=== PATIENT | female | born 1960 | race Caucasian/White ===

== ENCOUNTER → 2016-09-26 | Outpatient (CLI) | payer OTHER ==
--- NOTE | 2016-09-26 09:49 | MM ---
Reason for exam: follow-up at short interval from prior study. Last mammogram was performed 9 months ago. History: Patient has history of breast cancer at age 55. Malignant MG pre op loc each addl LT of the left breast, January 19, 2016. Malignant MG pre op needle loc LT of the left breast, January 19, 2016. Malignant US biopsy breast VAD LT of the left breast, December 31, 2015. Malignant US biopsy breast add'l VAD LT of the left breast, December 31, 2015. Benign ultrasound-guided core biopsy of the left breast, December 13, 2001. Core biopsy of the left breast. Physical Findings: Nurse did not find any significant physical abnormalities on exam. MG Diagnostic Mammo w CAD CHRISTINA Bilateral CC and MLO view(s) were taken. Spot compression CC and spot compression MLO view(s) were taken of the right breast. Prior study comparison: December 31, 2015, left breast MG diagnostic mammo LT wo CAD. December 09, 2015, left breast MG work up mamm w CAD LT. The breast tissue is heterogeneously dense. This may lower the sensitivity of mammography. Post operative and post radiation changes in the left breast. This is a new baseline. These results were verbally communicated with the patient and result sheet given to the patient on 09/26/16. ASSESSMENT: Probably benign, BI-RAD 3 RECOMMENDATION: Follow-up diagnostic mammogram of both breasts in 1 year.
== END | disposition home or self-care (01) ==
LOC: RADMAMWWP 08:40
PROVIDERS: ATTEND Radiology Diagnostic Radiology
DX: C50.912 Malignant neoplasm of unspecified site of left female breast (principal)

== ENCOUNTER → 2017-06-23 | Outpatient (CLI) | payer OTHER ==
[2017-06-23 11:14] LABS: Basophils % (A) 1 %; CH 28.2; CHCM 31.8; Eosinophils # (A) 0.1 k/uL (0-0.7); Eosinophils % (A) 2 %; HCT 44.8 % (34.0-46.0); HDW 2.46; HGB 14.1 gm/dL (11.4-16.0); Luc # (Auto) 0.16; Luc % (Auto) 4; Lymphocytes # (A) 1.1 k/uL (1.0-4.8); Lymphocytes % (A) 29 %; MCHC 31.4 g/dL (31.0-37.0); MCV 89.3 fL (80.0-100.0); Monocytes # (A) 0.3 k/uL (0-1.0); Monocytes % (A) 8 %; Neutrophils # (A) 2.1 k/uL (1.3-7.7); Neutrophils % (A) 57 %; RBC 5.01 m/uL (3.80-5.40); RDW 12.7 % (11.5-15.5); WBC 3.8 k/uL (3.8-10.6); WBC (Perox) 3.76
[2017-06-23 11:21] LABS: Appearance,Urine Cloudy (Clear); Bacteria,Urine Few /hpf; Bilirubin,Urine Negative (Negative); Glucose,Urine (UA) Negative (Negative); Ketones,Urine Negative (Negative); Leukocyte Esterase,Urine Moderate (Negative); Mucus,Urine Many /hpf; Nitrite,Urine Positive (Negative); Particle Count 152005; Protein,Urine Trace (Negative); RBC,Urine 6 /hpf (0-5); Squamous Epithelial Cell,Urine <1 /hpf (0-4); UA Billing (MACRO vs. MICRO) MICRO; Urobilinogen,Urine <2.0 mg/dL (<2.0); WBC,Urine 29 /hpf (0-5)
[2017-06-23 11:22] LABS: Anion Gap 6 mmol/L; Blood Urea Nitrogen 16 mg/dL (7-17); Calcium 9.4 mg/dL (8.4-10.2); Carbon Dioxide 31 mmol/L (22-30); Chloride 105 mmol/L (98-107); Glucose 97 mg/dL (74-99); Non-African American GFR(MDRD) >60 (>60 ml/min/1.73 sqM); Potassium 3.9 mmol/L (3.5-5.1); Sodium 142 mmol/L (137-145)
== END | disposition home or self-care (01) ==
LOC: LABWHC1 10:19
PROVIDERS: ATTEND Urology
DX: Z01.812 Encounter for preprocedural laboratory examination (principal); R35.0 Frequency of micturition; N30.10 Interstitial cystitis (chronic) without hematuria; E05.90 Thyrotoxicosis, unspecified without thyrotoxic crisis or storm
CPT/HCPCS: 36415; 80048; 81001; 85025; 87077; 87086; 87186

== ENCOUNTER → 2017-09-27 | Outpatient (CLI) | payer OTHER ==
--- NOTE | 2017-09-27 09:56 | MM ---
Reason for exam: additional evaluation requested from prior study. Last mammogram was performed 1 year ago. History: Patient has history of breast cancer at age 55. Radiation therapy, March 2016. Malignant MG pre op loc each addl LT of the left breast, January 19, 2016. Malignant MG pre op needle loc LT of the left breast, January 19, 2016. Malignant US biopsy breast VAD LT of the left breast, December 31, 2015. Malignant US biopsy breast add'l VAD LT of the left breast, December 31, 2015. Benign ultrasound-guided core biopsy of the left breast, December 13, 2001. Core biopsy of the left breast. Taking antineoplastic beginning at age 55. Physical Findings: Nurse did not find any significant physical abnormalities on exam. MG Diagnostic Mammo w CAD CHRISTINA Bilateral CC and MLO view(s) were taken. XCCL view(s) were taken of the left breast. Prior study comparison: September 26, 2016, bilateral MG diagnostic mammo w CAD CHRISTINA. December 31, 2015, left breast MG diagnostic mammo LT wo CAD. The breast tissue is heterogeneously dense. This may lower the sensitivity of mammography. Finding #1: Architectural distortion in the upper outer quadrant of the left breast consistent with previous surgery/biopsy. Finding #2: There are typically benign calcifications in both breasts. There is a chronic nodularity in the right breast, stable. No significant changes in finding since September 26, 2016 and December 31, 2015. These results were verbally communicated with the patient and result sheet given to the patient on 09/27/17. ASSESSMENT: Benign, BI-RAD 2 RECOMMENDATION: Follow-up diagnostic mammogram of both breasts in 1 year.
== END | disposition home or self-care (01) ==
LOC: RADMAMWWP 08:38
PROVIDERS: ATTEND Radiology Diagnostic Radiology
DX: C50.912 Malignant neoplasm of unspecified site of left female breast (principal)
CPT/HCPCS: 77066

== ENCOUNTER → 2018-10-29 | Outpatient (CLI) | payer OTHER ==
--- NOTE | 2018-10-29 17:12 | BD ---
EXAMINATION TYPE: Axial Bone Density DATE OF EXAM: 10/29/2018 COMPARISON: 05/10/2016 CLINICAL HISTORY: 57-year-old female osteopenia, postmenopausal screening without HRT Height: 65 IN Weight: 195 LBS FRAX RISK QUESTIONS: Secondary Osteoporosis: 3. Menopause before 45: YES AGE 26 PARTIAL HYST RISK FACTORS HISTORY OF: Active: YES Diet low in dairy products/other sources of calcium: YES Postmenopausal woman: AGE 26 MEDICATIONS: Additional Medications: VIT D, LETRAZOLE, URINARY FREQUENCY MED, Additional History: BREAST CANCER WITH RADIATION EXAM MEASUREMENTS: Bone mineral densitometry was performed using the [employer] System. Bone mineral density as measured about the Lumbar spine is: ----- L1-L4(G/cm2): 0.974 T Score Values are as follows: ----- L2: -2.3 ----- L3: -0.9 ----- L4: -2.0 ----- L1-L4: -1.7 Bone mineral density has: DECREASED -5.5% since study of: 05/10/2016 Bone mineral density about the R hip (g/cm2): 0.928 Bone mineral density about the L hip (g/cm2): 0.851 T Score values are as follows: -----R Neck: -0.8 -----L Neck: -1.3 -----R Total: -0.3 -----L Total: -0.5 Bone mineral density has: DECREASED -4.4% since study of: 05/10/2016 IMPRESSION: Osteopenia (T Score between -2.5 and -1). There is slightly increased risk of fracture and the patient may be considered for treatment. Re-Screen 2-5 years. NOTE: T-SCORE=SD OF THE YOUNG ADULT MEAN.
== END ==
LOC: RADBDWWP 08:29
PROVIDERS: ATTEND Internal Medicine Hematology & Oncology
DX: M85.80 Other specified disorders of bone density and structure, unspecified site (principal)
CPT/HCPCS: 77080

== ENCOUNTER → 2018-10-29 | Outpatient (CLI) | payer OTHER ==
--- NOTE | 2018-10-29 10:49 | MM ---
Reason for exam: additional evaluation requested from prior study. Last mammogram was performed 1 year and 1 month ago. History: Patient has history of breast cancer at age 55. Radiation therapy, March 2016. Malignant MG pre op loc each addl LT of the left breast, January 19, 2016. Malignant MG pre op needle loc LT of the left breast, January 19, 2016. Malignant US biopsy breast VAD LT of the left breast, December 31, 2015. Malignant US biopsy breast add'l VAD LT of the left breast, December 31, 2015. Benign ultrasound-guided core biopsy of the left breast, December 13, 2001. Core biopsy of the left breast. Taking antineoplastic for 2 years beginning at age 55. Physical Findings: Nurse did not find any significant physical abnormalities on exam. MG Diagnostic Mammo w CAD CHRISTINA Bilateral CC and MLO view(s) were taken. XCCL view(s) were taken of the left breast. Prior study comparison: September 27, 2017, bilateral MG diagnostic mammo w CAD CHRISTINA. September 26, 2016, bilateral MG diagnostic mammo w CAD CHRISTINA. The breast tissue is heterogeneously dense. This may lower the sensitivity of mammography. Post surgical and post therapy changes left breast. Gradually increasing dystrophic calcifications on the left. No significant new findings when compared with previous films. These results were verbally communicated with the patient and result sheet given to the patient on 10/29/18. ASSESSMENT: Benign, BI-RAD 2 RECOMMENDATION: Follow-up diagnostic mammogram of both breasts in 1 year.
== END | disposition home or self-care (01) ==
LOC: RADMAMWWP 08:26
PROVIDERS: ATTEND Radiology Diagnostic Radiology
DX: C50.412 Malignant neoplasm of upper-outer quadrant of left female breast (principal)
CPT/HCPCS: 77066

== ENCOUNTER → 2019-01-31 | Outpatient (CLI) | payer OTHER ==
[2019-01-31 14:11] VITALS: BP 114/74; PULSE 71; RESP 18; TEMP 98.8; BMI 31.9
--- NOTE | 2019-01-31 14:48 | P.GSHP ---
History of Present Illness H&P Date: 01/31/19 Chief Complaint: Left breast lumpectomy Susan is a 58 year old white female status post left breast lumpectomy January 2016, and an axillary dissection. She had radiation therapy but did not have any chemotherapy. She is on letrazole. She is uncertain as to the size of the t umor. This surgery was done here at [facility]. She developed swelling/ lymphedema in her left arm approximately 4 months after the surgery and has been seen by a lymphedema specialist. She wears an elastic stocking. She has had at least one hospitalization for lymphangitis requiring IV antibiotic therapy approximately 6 months ago. She has no complaints or problems related with her breasts. She has no new nodules or masses in her breasts. [place] mamm[place] [id number]. This was a bilateral benign BIRADS 2. Tumor [id number] Family History: brother: kidney father: lung Hormonal History: menarche: 11 , 1 [place]age Menopause: Partial hysterectomy in 1986 at the age of 28 BCP: 6 years hormones: none Surgical history: 1. Left breast lumpectomy and axillary node dissection 2. D&C's 3. left knee meniscus 4. Cystoscopy, diagnosis interstitial cystitis Medical History: 1. interstiial cystitis 2. lymphedema 3. UTI 4. osteopenia Social history: Smoking: Negative Alcohol: Negative Drugs: Negative - Constitutional Constitutional: Denies chills, Denies fever - EENT Eyes: denies blurred vision, denies pain Ears: deny: decreased hearing, tinnitus Ears, nose, mouth and throat: Denies headache, Denies sore throat - Breasts Breasts: bilateral: as per HPI - Cardiovascular Cardiovascular: Denies chest pain, Denies shortness of breath - Respiratory Respiratory: Denies cough, Denies 7 - Gastrointestinal Gastrointestinal: Denies abdominal pain, Denies diarrhea, Denies nausea, Denies vomiting - Genitourinary (Female) Comment: Interstitial cystitis, UTIs in the past - Menstruation Menstruation: Reports post hysterectomy - Musculoskeletal Comment: Osteopenia - Integumentary Comment: Lymphedema left upper extremity - Neurological Neurological: Denies numbness, Denies weakness - Psychiatric Psychiatric: Denies anxiety, Denies depression - Endocrine Endocrine: Denies fatigue, Denies weight change - Hematologic/Lymphatic Hematologic/Lymphatic: Reports lymphedema - Allergic/Immunologic Allergic/Immunologic: Reports seasonal allergies Past Medical History Past Medical History: Cancer, GERD/Reflux Additional Past Medical History / Comment(s): DX LT BREAST CA-01/07/16 History of Any Multi-Drug Resistant Organisms: ESBL Date of last positivie culture/infection: 06/23/17 MDRO Source:: ESBL URINE Past Surgical History: Bladder Surgery, Breast Surgery, Hysterectomy, Orthopedic Surgery Additional Past Surgical History / Comment(s): LT BREAST CORE BIOPSY, LT KNEE SCOPE, BLADDER SX, D & C, COLONOSCOPY Past Anesthesia/Blood Transfusion Reactions: Postoperative Nausea & Vomiting (PONV) Past Psychological History: No Psychological Hx Reported Smoking Status: Never smoker Past Alcohol Use History: None Reported Past Drug Use History: None Reported - Past Family History Father Family Medical History: Cancer Brother(s) Family Medical History: Cancer Medications and Allergies Home Medications Medication Instructions Recorded Confirmed Type Ergocalciferol [Vitamin D2 50,000 unit PO Q7D 01/13/16 01/31/19 History (DRISDOL)] Oxybutynin Chloride [Ditropan] 5 mg PO TID 01/13/16 01/19/16 History Alendronate Sodium 70 mg PO WEEKLY 01/31/19 01/31/19 History Letrozole 2.5 mg PO 01/31/19 History Allergies Allergy/AdvReac Type Severity Reaction Status Date / Time sulfamethoxazole AdvReac Nausea Verified 01/31/19 14:03 [From Bactrim] trimethoprim [From Bactrim] AdvReac Nausea Verified 01/31/19 14:03 Surgical - Exam Vital Signs Temp Pulse Resp BP Pulse Ox 98.8 F 71 18 114/74 94 L 01/31/19 14:07 01/31/19 14:07 01/31/19 14:07 01/31/19 14:07 01/31/19 14:07 BMI 32 - General obese - Eyes normal ocular movement - ENT no hearing loss, no congestion - Neck no masses, trachea midline - Respiratory normal expansion, normal respiratory effort, clear to percussion, clear to auscultation - Cardiovascular Rhythm: regular Heart Sounds: normal: S1, S2 - Abdomen Abdomen: soft, non tender, no guarding, no rigid, no rebound - Integumentary lymphedema left upper arm - Neurologic no disoriented, no combative - Musculoskeletal normal gait, normal posture - Psychiatric oriented to time, oriented to person, oriented to place, speech is normal, memory intact Breast exam: right breast: Multiple positional exam no dominant masses or nodules of concern, fibrocystic changes in the right breast Right axilla: No adenopathy of concern Left breast: Multiple positional exam no dominant masses or nodules of concern, no evidence of any recurrent cancer, fibrocystic changes, well-healed scar from prior lumpectomy Left axilla: No adenopathy of concern Left upper extremity lymphedema, elastic sleeve in place Results Mammogram reviewed Assessment and Plan Assessment: Impression: 1. interstiial cystitis 2. lymphedema 3. UTI 4. osteopenia 5. personal history of breast cancer Stage 1A 6. on letrazole 7. No evidence of recurrent cancer Plan: 1. Continue present therapy on letrazole 2. Continue to follow with 3. medical managment of medical conditions 4. appt. Lavinia Haley, lymphedema therapist 5. follow up in 6 months CC: Dr. Abraham, Dr. Adolfo Bernstein
== END ==
LOC: WWCWWP 13:47
PROVIDERS: ATTEND Surgery
DX: Z53.9 Procedure and treatment not carried out, unspecified reason (principal)

== ENCOUNTER → 2019-10-31 | Outpatient (CLI) | payer OTHER ==
--- NOTE | 2019-10-31 09:04 | MM ---
Reason for exam: additional evaluation requested from prior study. Last mammogram was performed 1 year ago. History: Patient has history of breast cancer at age 55. Radiation therapy, March 2016. Malignant MG pre op loc each addl LT of the left breast, January 19, 2016. Malignant MG pre op needle loc LT of the left breast, January 19, 2016. Malignant US biopsy breast VAD LT of the left breast, December 31, 2015. Malignant US biopsy breast add'l VAD LT of the left breast, December 31, 2015. Benign ultrasound-guided core biopsy of the left breast, December 13, 2001. Core biopsy of the left breast. Taking antineoplastic for 2 years beginning at age 55. Physical Findings: Nurse did not find any significant physical abnormalities on exam. MG Diagnostic Mammo w CAD CHRISTINA Bilateral CC and MLO view(s) were taken. Prior study comparison: October 29, 2018, bilateral MG diagnostic mammo w CAD CHRISTINA. September 27, 2017, bilateral MG diagnostic mammo w CAD CHRISTINA. The breast tissue is heterogeneously dense. This may lower the sensitivity of mammography. Finding #1: There is drecreased in size and architectural distortion in the upper outer quadrant of the left breast consistent with known lumpectomy changes. Finding #2: There are typically benign vascular calcifications in both breasts. There is no discrete abnormality. These results were verbally communicated with the patient and result sheet given to the patient on 10/31/19. ASSESSMENT: Benign, BI-RAD 2 RECOMMENDATION: Follow-up diagnostic mammogram of both breasts in 1 year.
== END | disposition home or self-care (01) ==
LOC: RADMAMWWP 08:09
PROVIDERS: ATTEND Radiology Diagnostic Radiology
DX: Z08 Encounter for follow-up examination after completed treatment for malignant neoplasm (principal); Z85.3 Personal history of malignant neoplasm of breast
CPT/HCPCS: 77066

== ENCOUNTER → 2020-11-02 | Outpatient (CLI) | payer OTHER ==
--- NOTE | 2020-11-02 13:30 | MM ---
Reason for exam: additional evaluation requested from prior study. Last mammogram was performed 1 year ago. History: Patient has history of breast cancer at age 55. Radiation therapy, March 2016. Malignant MG pre op loc each addl LT of the left breast, January 19, 2016. Malignant MG pre op needle loc LT of the left breast, January 19, 2016. Malignant US biopsy breast VAD LT of the left breast, December 31, 2015. Malignant US biopsy breast add'l VAD LT of the left breast, December 31, 2015. Benign ultrasound-guided core biopsy of the left breast, December 13, 2001. Core biopsy of the left breast. Taking antineoplastic for 2 years beginning at age 55. Physical Findings: Nurse did not find any significant physical abnormalities on exam. MG Diagnostic Mammo w CAD CHRISTINA Bilateral CC and MLO view(s) were taken. Prior study comparison: October 31, 2019, bilateral MG diagnostic mammo w CAD CHRISTINA. October 29, 2018, bilateral MG diagnostic mammo w CAD CHRISTINA. The breast tissue is heterogeneously dense. This may lower the sensitivity of mammography. Stable benign calcifications. There is chronic nodularity in the right breast. Stable post lumpectomy changes left breast. No significant new findings when compared with previous films. These results were verbally communicated with the patient and result sheet given to the patient on 11/02/20. ASSESSMENT: Benign, BI-RAD 2 RECOMMENDATION: Follow-up diagnostic mammogram of both breasts in 1 year.
== END ==
LOC: RADMAMWWP 09:14
PROVIDERS: ATTEND Radiology Diagnostic Radiology
DX: C50.912 Malignant neoplasm of unspecified site of left female breast (principal)
CPT/HCPCS: 77066

== ENCOUNTER → 2020-11-02 | Outpatient (CLI) | payer OTHER ==
--- NOTE | 2020-11-02 11:47 | BD ---
EXAMINATION TYPE: Axial Bone Density DATE OF EXAM: 11/02/2020 COMPARISON: 2016 CLINICAL HISTORY: osteopenia, breast cancer Height: 5'4 1/2 Weight: 197 FRAX RISK QUESTIONS: Secondary Osteoporosis: RISK FACTORS HISTORY OF: Postmenopausal woman: y MEDICATIONS: Additional Medications: letrozole, fosamax Additional History: left breast cancer EXAM MEASUREMENTS: Bone mineral densitometry was performed using the [employer] System. Bone mineral density as measured about the Lumbar spine is: ----- L1-L4(G/cm2): 1.078 T Score Values are as follows: ----- L2: -1.2 ----- L3: 0.2 ----- L4: -1.3 ----- L1-L4: -0.8 Bone mineral density has: Increased 5.0% since study of: 05/10/2016 Bone mineral density about the R hip (g/cm2): 0.950 Bone mineral density about the L hip (g/cm2): 0.827 T Score values are as follows: -----R Neck: -0.6 -----L Neck: -1.5 -----R Total: -0.3 -----L Total: -0.2 Bone mineral density has: Decreased -2.8% since study of: 05/10/2016 IMPRESSION: No evidence for osteoporosis or osteopenia NOTE: T-SCORE=SD OF THE YOUNG ADULT MEAN.
== END | disposition home or self-care (01) ==
LOC: RADBDWWP 09:16
PROVIDERS: ATTEND Internal Medicine Hematology & Oncology
DX: C50.412 Malignant neoplasm of upper-outer quadrant of left female breast (principal); M85.80 Other specified disorders of bone density and structure, unspecified site; Z88.2 Allergy status to sulfonamides
CPT/HCPCS: 77080

== ENCOUNTER → 2021-11-04 | Outpatient (CLI) | payer OTHER ==
--- NOTE | 2021-11-04 11:09 | MM ---
Reason for exam: additional evaluation requested from prior study. Last mammogram was performed 1 year ago. History: Patient is postmenopausal and has history of breast cancer at age 55. Radiation therapy, March 2016. Malignant MG pre op loc each addl LT of the left breast, January 19, 2016. Malignant MG pre op needle loc LT of the left breast, January 19, 2016. Malignant US biopsy breast VAD LT of the left breast, December 31, 2015. Malignant US biopsy breast add'l VAD LT of the left breast, December 31, 2015. Benign ultrasound-guided core biopsy of the left breast, December 13, 2001. Core biopsy of the left breast. Taking antineoplastic for 2 years beginning at age 55. Physical Findings: A clinical breast exam by your physician is recommended on an annual basis and results should be correlated with mammographic findings. MG Diagnostic Mammo w CAD CHRISTINA Bilateral CC and MLO view(s) were taken. XCCL view(s) were taken of the left breast. Prior study comparison: November 02, 2020, bilateral MG diagnostic mammo w CAD CHRISTINA. October 31, 2019, bilateral MG diagnostic mammo w CAD CHRISTINA. There are scattered fibroglandular densities. Asymmetric breast tissue, greater in the left breast. Post surgical changes in the left breast. No significant changes when compared with prior studies. ASSESSMENT: Benign, BI-RAD 2 RECOMMENDATION: Routine screening mammogram of both breasts.
== END | disposition home or self-care (01) ==
LOC: RADMAMWWP 09:31
PROVIDERS: ATTEND Radiology Radiation Oncology
DX: R92.8 Other abnormal and inconclusive findings on diagnostic imaging of breast (principal); Z85.3 Personal history of malignant neoplasm of breast; Z78.0 Asymptomatic menopausal state; Z92.3 Personal history of irradiation
CPT/HCPCS: 77066

== ENCOUNTER → 2022-11-16 | Outpatient (CLI) | payer OTHER ==
--- NOTE | 2022-11-16 09:41 | MM ---
Reason for Exam: Follow-up at short interval from prior study. Last mammogram was performed 1 year(s) and 1 month(s) ago. Patient History: Menarche at age 14. First Full-Term at age 16. Hysterectomy at age 28. Postmenopausal. Breast cancer, age 55. Core Biopsy on the Left side. 01/19/2016, Malignant Core Biopsy on the left side. 01/19/2016, Malignant Core Biopsy on the left side. 12/31/2015, Malignant Core Biopsy on the left side. 12/31/2015, Malignant Core Biopsy on the left side. 12/13/2001, Benign Ultrasound-Guided Core Biopsy on the left side. 03/2016, Radiation Therapy. Prior Study Comparison: 10/31/2019 Bilateral Diagnostic Mammogram, [facility]. 11/02/2020 Bilateral Diagnostic Mammogram, [facility]. 11/04/2021 Bilateral Diagnostic Mammogram, [facility]. Tissue Density: There are scattered fibroglandular densities. Findings: Analyzed By CAD. Diminished size of the left breast with distortion and dystrophic calcifications is redemonstrated. Benign-appearing Vascular calcification bilaterally is redemonstrated. No suspicious new mass or distortion in either breast. Benign-appearing right axillary lymph nodes are redemonstrated. Overall Assessment: Benign, BI-RAD 2 Management: Screening Mammogram of both breasts in 1 year. A clinical breast exam by your physician is recommended on an annual basis and results should be correlated with mammographic findings. This exam should not preclude additional follow-up of suspicious palpable abnormalities. Results were given to the patient verbally at the time of exam. Electronically signed and approved by: Jozef Khan M.D.
== END | disposition home or self-care (01) ==
LOC: RADMAMWWP 09:09
PROVIDERS: ATTEND Radiology Radiation Oncology
DX: C50.412 Malignant neoplasm of upper-outer quadrant of left female breast (principal); Z78.0 Asymptomatic menopausal state
CPT/HCPCS: 77066

== ENCOUNTER → 2022-11-16 | Outpatient (CLI) | payer OTHER ==
--- NOTE | 2022-11-16 10:58 | BD ---
EXAMINATION TYPE: Axial Bone Density DATE OF EXAM: 11/16/2022 CLINICAL HISTORY: 61 years old Female. ICD-10 CODE: C50.412 MALIG NEOPLASM OF UPPER-OUTER QUADRANT O F LEFT FEMALE Comparison: Prior DEXA 2020 Height: 64 in Weight: 180 lbs FRAX RISK QUESTIONS: Secondary Osteoporosis: 3. Menopause before 45: partial hysterectomy age 28 RISK FACTORS HISTORY OF: Active: yes Diet low in dairy products/other sources of calcium: yes Postmenopausal woman: partial hysterectomy age 28 MEDICATIONS: Additional Medications: vit d, vit b, letrozole, cholesterol meds, alendronate sodium Additional History: breast cancer with radiation EXAM MEASUREMENTS: Bone mineral densitometry was performed using the [employer] System. Bone mineral density as measured about the Lumbar spine is: ----- L1-L4(G/cm2): 1.067 T Score Values are as follows: ----- L1: -1.2 ----- L2: -1.1 ----- L3: -0.4 ----- L4: -1.0 ----- L1-L4: -0.9 Z Score Values are as follows: ----- L1: -0.3 ----- L2: -0.1 ----- L3: 0.6 ----- L4: -0.1 ----- L1-L4: 0.0 Bone mineral density has: Decreased -1.0% since study of: 11/02/2020 Bone mineral density about the R hip (g/cm2): 0.926 Bone mineral density about the L hip (g/cm2): 0.920 T Score values are as follows: -----R Neck: -0.9 -----L Neck: -1.6 -----R Total: -0.6 -----L Total: -0.7 Z Score values are as follows: -----R Neck: 0.2 -----L Neck: -0.5 -----R Total: 0.1 -----L Total: 0.0 Bone mineral density has: Decreased -5.4% since study of: 11/02/2020 FRAX%s: The graph provided illustrates a 8.6% chance for a major osteoporotic fx and a 0.9% chance fo r the hips probability for fx in 10 years time. IMPRESSION: Osteopenia (T Score between -2.5 and -1). There is slightly increased risk of fracture and the patient may be considered for treatment. Re-Screen 2-5 years. NOTE: T-SCORE=SD OF THE YOUNG ADULT MEAN.
== END | disposition home or self-care (01) ==
LOC: RADBDWWP 09:13
PROVIDERS: ATTEND Internal Medicine Hematology & Oncology
DX: C50.412 Malignant neoplasm of upper-outer quadrant of left female breast (principal); M85.89 Other specified disorders of bone density and structure, multiple sites
CPT/HCPCS: 77080

== ENCOUNTER → 2023-09-15 | Outpatient (CLI) | payer OTHER | END | disposition home or self-care (01) | LOC: LABPAT 09:44 | PROVIDERS: ATTEND Orthopaedic Surgery | DX: Z01.812 Encounter for preprocedural laboratory examination (principal); Z22.322 Carrier or suspected carrier of Methicillin resistant Staphylococcus aureus; M17.11 Unilateral primary osteoarthritis, right knee | CPT/HCPCS: 87070 ==

== ENCOUNTER → 2023-10-03 | Outpatient (CLI) | payer OTHER ==
--- NOTE | 2023-10-03 18:01 | CA ---
Transthoracic Echo Report Name: Susan Stahl Age: 62 Gender: F : 1960 Exam Date: 10/03/2023 16:28 Exam Location: [facility] Ht (in): 66 Wt (lb): 179 Ordering Physician: Wyatt Ramires MD Attending/Referring Phys: Lico Mckeon DO Travel Accommodation Inspector Du Calderon RDCS Procedure CPT: Indications: I44.0 AV BLOCK FIRST DEGREE Cardiac Hx: Technical Quality: Fair Contrast 1: Total Dose (mL): Contrast 2: Total Dose (mL): MEASUREMENTS (Male / Female) Normal Values 2D ECHO LV Diastolic Diameter PLAX 4.1 cm 4.2 - 5.9 / 3.9 - 5.3 cm LV Systolic Diameter PLAX 2.7 cm IVS Diastolic Thickness 0.9 cm 0.6 - 1.0 / 0.6 - 0.9 cm LVPW Diastolic Thickness 0.9 cm 0.6 - 1.0 / 0.6 - 0.9 cm LV Relative Wall Thickness 0.5 Aortic Root Diameter 3.5 cm LA Systolic Diameter LX 4.1 cm 3.0 - 4.0 / 2.7 - 3.8 cm DOPPLER AV Peak Velocity 109.1 cm/s AV Peak Gradient 4.8 mmHg AV Mean Velocity 86.3 cm/s AV Mean Gradient 3.1 mmHg AV Velocity Time Integral 24.3 cm LVOT Peak Velocity 97.2 cm/s LVOT Peak Gradient 3.8 mmHg LVOT Velocity Time Integral 21.2 cm MR Peak Velocity 547.5 cm/s MR Peak Gradient 119.9 mmHg Mitral E Point Velocity 122.2 cm/s Mitral A Point Velocity 0.1 cm/s Mitral E to A Ratio 1228.7 MV Deceleration Time 152.4 ms MV E' Velocity 18.5 cm/s Mitral E to MV E' Ratio 6.6 PV Peak Velocity 82.4 cm/s PV Peak Gradient 2.7 mmHg FINDINGS Left Ventricle Left ventricular ejection fraction is estimated at 55-60 %.Normal left ventricular systolic function with no obvious regional wall motion abnormalities. Left ventricular cavity size normal. Right Ventricle Normal right ventricular size and function. Right Atrium Normal right atrial size. Left Atrium Mildly increased left atrial diameter. Mitral Valve [id number] mitral regurgitation.mitral valve thickened. Aortic Valve Aortic valve not well visualized. Tricuspid Valve Mild tricuspid regurgitation.structurally normal tricuspid valve. Pulmonic Valve Pulmonic valve not well visualized. No pulmonic regurgitation. Pericardium No pericardial effusion. Aorta Normal size aortic root and proximal ascending aorta. CONCLUSIONS Technically difficult study. Left ventricle size and systolic function are normal Mild to moderate mitral regurgitation with mild tricuspid regurgitation Previewed by: Dr. Stanford Weir MD (Electronically Signed) Final Date: 03 October 2023 18:00
== END | disposition home or self-care (01) ==
LOC: RADECHMAIN 09-29 15:54
PROVIDERS: ATTEND Internal Medicine Geriatric Medicine
DX: I34.0 Nonrheumatic mitral (valve) insufficiency (principal); I36.1 Nonrheumatic tricuspid (valve) insufficiency; I44.0 Atrioventricular block, first degree
CPT/HCPCS: 93306

== ENCOUNTER → 2023-11-20 | Outpatient (CLI) | payer OTHER ==
--- NOTE | 2023-11-20 09:16 | MM ---
Reason for Exam: Hx of breast cancer, conservation therapy. Last screening mammogram was performed 12 month(s) ago. Patient History: Menarche at age 14. First Full-Term at age 16. Hysterectomy at age 28. Postmenopausal. Breast cancer, age 55. Core Biopsy on the Left side. 01/19/2016, Malignant Core Biopsy on the left side. 01/19/2016, Malignant Core Biopsy on the left side. 12/31/2015, Malignant Core Biopsy on the left side. 12/31/2015, Malignant Core Biopsy on the left side. 12/13/2001, Benign Ultrasound-Guided Core Biopsy on the left side. 03/2016, Radiation Therapy. Tissue Density: The breasts are heterogeneously dense, which may obscure small masses. Findings: Analyzed By CAD. Post lumpectomy changes left breast remain stable. Stable benign calcifications bilaterally. No suspicious clusters seen. No evidence for mass. Overall Assessment: Benign, BI-RAD 2 Management: Diagnostic Mammogram of both breasts in 1 year. . Results were given to the patient verbally at the time of exam. Patient should continue monthly self-breast exams. A clinical breast exam by your physician is recommended on an annual basis. This exam should not preclude additional follow-up of suspicious palpable abnormalities. Note on Zakia scores and lifetime risk: 1. A Zakia score greater than 3% is considered moderate risk. If this is the case, consider specialist referral to assess eligibility for a risk reducing agent. 2. If overall lifetime risk for the development of breast cancer is 20% or higher, the patient may qualify for future screening with alternating mammogram and breast MRI. Electronically signed and approved by: Alexx Corbett M.D. Radiologis
== END | disposition home or self-care (01) ==
LOC: RADMAMWWP 08:51
PROVIDERS: ATTEND Radiology Radiation Oncology
DX: C50.412 Malignant neoplasm of upper-outer quadrant of left female breast (principal); R92.333 Mammographic heterogeneous density, bilateral breasts; Z78.0 Asymptomatic menopausal state; Z79.811 Long term (current) use of aromatase inhibitors
CPT/HCPCS: 77066; G0279; 77062

== ENCOUNTER → 2024-12-11 | Outpatient (CLI) | payer MEDICARE, OTHER ==
--- NOTE | 2024-12-11 10:31 | BD ---
EXAMINATION TYPE: Axial Bone Density DATE OF EXAM: 12/11/2024 CLINICAL HISTORY: 63 years old Female. ICD-10 CODE: M81.0 Osteopenia , Additional History: Height: 64.75 Weight: 197 FRAX RISK QUESTIONS: Family History (Parent hip fracture): no History of Fracture in Adulthood: no Secondary Osteoporosis: no RISK FACTORS HISTORY OF: Surgery to Spine/Hip(right/left)/Wrist (right/left): no MEDICATIONS: Thyroid Medications: no Which medication: Levothyroxine How Lon years Osteoporosis Medications: no EXAM MEASUREMENTS: Bone mineral densitometry was performed using the [employer] System. Bone mineral density as measured about the Lumbar spine is: ----- L1-L4(G/cm2): 1.041 T Score Values are as follows: ----- L1: -1.6 ----- L2: -1.3 ----- L3: -1.0 ----- L4: -0.9 ----- L1-L4: -1.2 Z Score Values are as follows: ----- L1: -0.8 ----- L2: -0.5 ----- L3: -0.2 ----- L4: -0.1 ----- L1-L4: -0.4 Bone mineral density has: Decreased -2.4% since study of: 11/16/2022 Bone mineral density about the R hip (g/cm2): 0.872 Bone mineral density about the L hip (g/cm2): 0.920 T Score values are as follows: -----R Neck: -1.7 -----L Neck: -1.9 -----R Total: -1.1 -----L Total: -0.7 Z Score values are as follows: -----R Neck: -0.7 -----L Neck: -0.9 -----R Total: -0.4 -----L Total: 0.0 Bone mineral density has: Decreased -2.9% since study of: 11/16/2022 FRAX%s: The graph provided illustrates a 9.8% chance for a major osteoporotic fx and a 1.4% chance fo r the hips probability for fx in 10 years time. IMPRESSION: Osteopenia (T Score between -2.5 and -1) remains present. There remains slightly increased risk of fracture and the patient may be considered for treatment. Re-Screen 2-5 years. NOTE: T-SCORE=SD OF THE YOUNG ADULT MEAN. [facility], , 12/11/2024 10:28 AM
== END | disposition home or self-care (01) ==
LOC: RADBDWWP 07:28
PROVIDERS: ATTEND Internal Medicine Hematology & Oncology
DX: M81.0 Age-related osteoporosis without current pathological fracture (principal); C50.412 Malignant neoplasm of upper-outer quadrant of left female breast; M85.9 Disorder of bone density and structure, unspecified; M85.89 Other specified disorders of bone density and structure, multiple sites; I89.0 Lymphedema, not elsewhere classified; Z71.3 Dietary counseling and surveillance; Z71.89 Other specified counseling
CPT/HCPCS: 77080

== ENCOUNTER → 2024-12-11 | Outpatient (CLI) | payer MEDICARE, OTHER ==
--- NOTE | 2024-12-11 07:53 | MM ---
Reason for Exam: Follow-up at short interval from prior study. Last screening mammogram was performed 12 month(s) ago. Patient History: Menarche at age 14. First Full-Term at age 16. Hysterectomy at age 28. Postmenopausal. Breast cancer, left, age 55. Previous chest radiation therapy at age 55. Core Biopsy on the Left side. 01/19/2016, Malignant Core Biopsy on the left side. 01/19/2016, Malignant Core Biopsy on the left side. 12/31/2015, Malignant Core Biopsy on the left side. 12/31/2015, Malignant Core Biopsy on the left side. 12/13/2001, Benign Ultrasound-Guided Core Biopsy on the left side. 03/2016, Radiation Therapy. Prior Study Comparison: 11/04/2021 Bilateral Diagnostic Mammogram, [facility]. 11/16/2022 Bilateral MG diagnostic mammo w CAD [facility]RI[facility]INA, [facility]. 11/20/2023 Bilateral MG 3D diag mammo w/cad CHRISTINA, [facility]. Tissue Density: The breasts are heterogeneously dense, which may obscure small masses. Findings: Benign-appearing vascular cuffs calcification bilaterally is redemonstrated. Persistent distortion/posttreatment change to the upper outer aspect left breast. No suspicious new mass or worrisome group of microcalcifications in either breast. Overall Assessment: Benign, BI-RAD 2 Management: Screening Mammogram of both breasts in 1 year. . Results were given to the patient verbally at the time of exam. Patient should continue monthly self-breast exams. A clinical breast exam by your physician is recommended on an annual basis. This exam should not preclude additional follow-up of suspicious palpable abnormalities. Note on Zakia scores and lifetime risk: 1. A Zakia score greater than 3% is considered moderate risk. If this is the case, consider specialist referral to assess eligibility for a risk reducing agent. 2. If overall lifetime risk for the development of breast cancer is 20% or higher, the patient may qualify for future screening with alternating mammogram and breast MRI. [facility], , 12/11/2024 7:49 AM. Electronically signed and approved by: Jozef Khan M.D.
== END | disposition home or self-care (01) ==
LOC: RADMAMWWP 07:25
PROVIDERS: ATTEND Radiology Radiation Oncology
DX: C50.412 Malignant neoplasm of upper-outer quadrant of left female breast (principal); R92.333 Mammographic heterogeneous density, bilateral breasts; R92.1 Mammographic calcification found on diagnostic imaging of breast; Z78.0 Asymptomatic menopausal state; Z85.3 Personal history of malignant neoplasm of breast
CPT/HCPCS: 77062; 77066